=== PATIENT | female | born 1970 | race Caucasian/White ===

== ENCOUNTER → 2017-03-30 | Outpatient (REF) | payer OTHER ==
[2017-03-30 23:27] LABS: ALBUMIN 3.8 GM/DL (3.2-5.2); ALBUMIN/GLOBULIN RATIO 1.15 (1.00-1.93); ALKALINE PHOSPHATASE 49 U/L (45-117); ALT/SGPT 32 U/L (12-78); ANION GAP 5 MEQ/L (8-16); AST/SGOT 17 U/L (15-37); BILIRUBIN,TOTAL 0.3 MG/DL (0.2-1.0); BLOOD UREA NITROGEN 20 MG/DL (7-18); CALCIUM LEVEL 9.2 MG/DL (8.5-10.1); CARBON DIOXIDE LEVEL 31 MEQ/L (21-32); CHLORIDE LEVEL 105 MEQ/L (98-107); CREATININE FOR GFR 0.75 MG/DL (0.55-1.02); GLOMERULAR FILTRATION RATE > 60.0 (>58); GLUCOSE, FASTING 81 MG/DL (70-105); POTASSIUM SERUM 3.7 MEQ/L (3.5-5.1); SODIUM LEVEL 141 MEQ/L (136-145); TOTAL PROTEIN 7.1 GM/DL (6.4-8.2)
== END ==
LOC: M LABDRWAD 12:01
PROVIDERS: ATTEND Family Medicine
DX: R13.10 Dysphagia, unspecified (principal)

== ENCOUNTER → 2017-04-10 | Outpatient (CLI) | payer OTHER ==
[~2017-04-10] MED LIST: E-Z-GAS II EFFERVESCENT PACKET (SODIUM BICARB./CITRIC ACID/SIMETHICONE) As Ordered ONE; E-Z-HD 98% w/w 340GM SUSP BTL As Ordered ONE; E-Z-PAQUE 96% w/w SUSP 176GM BTL As Ordered ONE
--- NOTE | 2017-04-10 17:34 | REP ---
Upper GI air contrast The procedure was performed under the direct supervision of Dr. Moyer. The covering machine tender film shows no organomegaly or pathologic masses. The intestinal gas pattern is nonspecific. Liquid barium and gas producing crystals were given in the erect position as well as liquid barium in the prone oblique position in order to perform a double contrast upper GI examination. The oral and pharyngeal stages of deglutition are unremarkable. Esophageal transport is prompt and efficient and there is no esophagitis or stricture mucosal ring or hiatal hernia. Gastroesophageal reflux is not demonstrated on this examination. The stomach alvarez are normally outlined . The rugal folds are smooth and regular. There is no gastritis neoplasm or ulcer disease. The duodenal alvarez are normally outlined . The mucosal folds are smooth and regular. There is no duodenitis pancreatitis peptic ulcer disease or neoplasm. The visualized portion of the proximal small bowel appears normal in course and caliber. Impression: Essentially unremarkable double contrast upper GI examination. 2 minutes and 8 seconds of fluoro time was utilized for this procedure. Reviewed by ASHELY Peck 04/10/2017 05:12 PSigned by Geovany Moyer MD 04/10/2017 05:24 P
== END ==
LOC: M RAD 08:40
PROVIDERS: ATTEND Family Medicine
DX: R13.10 Dysphagia, unspecified (principal)

== ENCOUNTER 2017-08-28 07:16 | Outpatient (RCR) | payer OTHER | END 2017-08-29 | LOC: M ST 07:16 | DX: Z51.89 Encounter for other specified aftercare (principal); R49.0 Dysphonia ==

== ENCOUNTER 2017-09-03 09:06 | Outpatient (RCR) | payer OTHER | END 2017-09-29 | LOC: M ST 09:06 | DX: Z51.89 Encounter for other specified aftercare (principal); R49.0 Dysphonia ==

== ENCOUNTER 2017-10-09 15:07 | Outpatient (RCR) | payer OTHER | END 2017-10-29 | LOC: M ST 15:07 | DX: Z51.89 Encounter for other specified aftercare (principal); R49.0 Dysphonia ==

== ENCOUNTER 2017-11-07 15:21 | Outpatient (RCR) | payer OTHER | END 2017-11-29 | LOC: M ST 11-19 15:15 | DX: Z51.89 Encounter for other specified aftercare (principal); R49.0 Dysphonia ==

== ENCOUNTER 2017-12-12 15:26 | Outpatient (RCR) | payer OTHER | END 2017-12-29 | LOC: M ST 15:26 | DX: Z51.89 Encounter for other specified aftercare (principal); R49.0 Dysphonia ==

== ENCOUNTER → 2017-12-27 | Outpatient (REF) | payer OTHER | LOC: M LAB REF 18:06 | DX: Z12.4 Encounter for screening for malignant neoplasm of cervix (principal) ==

== ENCOUNTER → 2018-09-18 | Outpatient (REF) | payer OTHER | LOC: M LAB REF 12:41 | DX: N39.0 Urinary tract infection, site not specified (principal) ==

== ENCOUNTER → 2020-03-11 | Outpatient (REF) | payer OTHER | LOC: M LAB REF 13:07 | PROVIDERS: ATTEND Nurse Practitioner Family | DX: N39.0 Urinary tract infection, site not specified (principal) ==

== ENCOUNTER → 2020-03-29 | Outpatient (REF) | payer OTHER ==
[2020-03-29 17:11] LABS: BASO # 0.1 10^3/uL (0.0-0.2); BASO % 0.7 % (0.0-1.0); EOS # 0.1 10^3/uL (0.0-0.5); EOS % 1.6 % (0.0-3.0); HEMATOCRIT 36.1 % (36.0-47.0); HEMOGLOBIN 11.7 g/dl (12.0-15.5); LYMPH # 1.8 10^3/uL (1.5-5.0); LYMPH % 27.1 % (24.0-44.0); MEAN CORPUSCULAR HEMOGLOBIN 29.7 pg (27.0-33.0); MEAN CORPUSCULAR HGB CONC 32.4 g/dl (32.0-36.5); MEAN CORPUSCULAR VOLUME 91.6 fl (80.0-96.0); MONO # 0.7 10^3/uL (0.0-0.8); MONO % 10.6 % (0.0-5.0); NEUTROPHILS # 4.1 10^3/uL (1.5-8.5); NEUTROPHILS % 59.9 % (36.0-66.0); PLATELET COUNT, AUTOMATED 216 10^3/uL (150-450); RED BLOOD COUNT 3.94 10^6/uL (4.00-5.40); WHITE BLOOD COUNT 6.8 10^3/uL (4.0-10.0)
[2020-03-29 17:17] LABS: ALBUMIN 3.8 GM/DL (3.2-5.2); ALT/SGPT 25 U/L (12-78); BILIRUBIN,TOTAL 0.4 MG/DL (0.2-1.0); BLOOD UREA NITROGEN 16 MG/DL (7-18); CALCIUM LEVEL 8.8 MG/DL (8.5-10.1); CARBON DIOXIDE LEVEL 29 MEQ/L (21-32); CHLORIDE LEVEL 105 MEQ/L (98-107); CHOLESTEROL LEVEL 149 MG/DL (<200); CREATININE FOR GFR 0.67 MG/DL (0.55-1.30); FREE T4 0.97 NG/DL (0.76-1.46); GLOMERULAR FILTRATION RATE > 60.0 (>58); GLUCOSE, FASTING 81 MG/DL (70-100); HDL CHOLESTEROL 76 MG/DL (>40); LDL CHOLESTEROL 63 MG/DL (<100); NON-HDL-C 73 MG/DL; POTASSIUM SERUM 3.7 MEQ/L (3.5-5.1); SODIUM LEVEL 136 MEQ/L (136-145); TOTAL PROTEIN 7.5 GM/DL (6.4-8.2); TRIGLYCERIDES LEVEL 51 MG/DL (<150)
== END ==
LOC: M LABDRWAD 16:22
PROVIDERS: ATTEND Nurse Practitioner Family
DX: Z00.00 Encounter for general adult medical examination without abnormal findings (principal)

== ENCOUNTER → 2022-02-16 | Outpatient (CLI) | payer OTHER | LOC: M WHC 07:03 | PROVIDERS: ATTEND Family Medicine | DX: Z12.31 Encounter for screening mammogram for malignant neoplasm of breast (principal) ==

== ENCOUNTER → 2022-02-21 | Outpatient (REF) | payer OTHER | LOC: M LAB REF 17:19 | PROVIDERS: ATTEND Family Medicine | DX: Z12.4 Encounter for screening for malignant neoplasm of cervix (principal) | CPT/HCPCS: 87624; G0123 ==

== ENCOUNTER 2024-05-19 07:36 | Emergency (ER) | payer OTHER ==
[~2024-05-19] VITALS: Ht 167.6 cm; Wt 74.8 kg
[2024-05-19 08:13] LABS: BASO # 0.1 10^3/uL (0.0-0.2); BASO % 1.8 % (0.0-1.0); EOS # 0.2 10^3/uL (0.0-0.5); EOS % 5.2 % (0.0-3.0); HEMATOCRIT 38.5 % (36.0-47.0); LYMPH # 1.2 10^3/uL (1.5-5.0); LYMPH % 36.9 % (24.0-44.0); MEAN CORPUSCULAR HEMOGLOBIN 30.9 pg (27.0-33.0); MEAN CORPUSCULAR HGB CONC 33.8 g/dl (32.0-36.5); MEAN CORPUSCULAR VOLUME 91.4 fl (80.0-96.0); MONO # 0.4 10^3/uL (0.0-0.8); MONO % 11.9 % (2.0-8.0); NEUTROPHILS # 1.4 10^3/uL (1.5-8.5); NEUTROPHILS % 43.9 % (36.0-66.0); PLATELET COUNT, AUTOMATED 246 10^3/uL (150-450); RED BLOOD COUNT 4.21 10^6/uL (4.00-5.40); WHITE BLOOD COUNT 3.3 10^3/uL (4.0-10.0)
[2024-05-19 08:43] LABS: LIPASE 38 U/L (12-53)
[2024-05-19 08:45] LABS: ALBUMIN 3.9 G/DL (3.2-5.2); ALKALINE PHOSPHATASE 84 U/L (35-104); ALT/SGPT 23 U/L (7.0-40); AST/SGOT 21 U/L (<34); BILIRUBIN,DIRECT < 0.1 MG/DL (<0.4); BILIRUBIN,TOTAL 0.3 MG/DL (0.3-1.2); BLOOD UREA NITROGEN 16 MG/DL (9-23); CALCIUM LEVEL 9.4 MG/DL (8.5-10.1); CARBON DIOXIDE LEVEL 27 MMOL/L (20-31); CHLORIDE LEVEL 108 MMOL/L (98-107); CREATININE FOR GFR 0.66 MG/DL (0.55-1.30); GLOMERULAR FILTRATION RATE > 60.0 (>51); GLUCOSE, FASTING 92 MG/DL (60-100); POTASSIUM SERUM 4.2 MMOL/L (3.5-5.1); SODIUM LEVEL 144 MMOL/L (136-145); TOTAL PROTEIN 7.3 G/DL (5.7-8.2)
[2024-05-19 08:47] LABS: FREE T4 1.17 NG/DL (0.89-1.76); THYROID STIMULATING HORMONE 2.563 uIU/ML (0.55-4.78)
[2024-05-19 08:50] LABS: CPK CREATINE PHOSPHOKINASE 179 U/L (34-145); MB/CK RELATIVE INDEX 0.55 (< OR =4)
[2024-05-19 09:32] LABS: CK-MB VALUE MASS < 1.0 NG/ML (<3.6)
[2024-05-19 09:34] LABS: CPK CREATINE PHOSPHOKINASE 162 U/L (34-145); MB/CK RELATIVE INDEX 0.61 (< OR =4)
[2024-05-19 10:00] VITALS: BP 124/73; TEMP 97.8; O2SAT 98
== END 2024-05-19 10:04 | disposition home or self-care (01) ==
LOC: M ED 07:36
DX: R00.2 Palpitations (principal); I45.10 Unspecified right bundle-branch block

== ENCOUNTER → 2024-06-02 | Outpatient (CLI) | payer OTHER | LOC: M PLAIMG 13:26 | PROVIDERS: ATTEND Registered Nurse | DX: R07.89 Other chest pain (principal) ==

== ENCOUNTER → 2024-06-16 | Outpatient (CLI) | payer OTHER | LOC: M SOG 07:59 | PROVIDERS: ATTEND Physician Assistant | DX: M19.141 Post-traumatic osteoarthritis, right hand (principal) ==

== ENCOUNTER → 2024-07-03 | Outpatient (CLI) | payer OTHER | LOC: M WHC 15:58 | PROVIDERS: ATTEND Registered Nurse | DX: Z12.31 Encounter for screening mammogram for malignant neoplasm of breast (principal) ==

== ENCOUNTER → 2024-08-25 | Outpatient (REF) | payer OTHER ==
[2024-08-25 13:58] LABS: CHOLESTEROL RISK RATIO 2.09 (<5); HDL CHOLESTEROL 77.9 MG/DL (>40); LDL CHOLESTEROL 71.5 MG/DL (<100); NON-HDL-C 85.1 MG/DL
== END ==
LOC: M LABDRWAD 12:42
PROVIDERS: ATTEND Internal Medicine Cardiovascular Disease
DX: R00.2 Palpitations (principal); R07.89 Other chest pain

== ENCOUNTER 2025-05-11 23:27 | Observation (INO) | payer OTHER ==
[~2025-05-11] VITALS: Ht 167.6 cm; Wt 74.8 kg
[2025-05-12] MEDS: ADENOSINE 6 MG/2 ML INJECTION IV STA ×2 (00:08)
[2025-05-12] MEDS: NS (Normal Saline) 0.9% 1,000 ML IV ONE (00:15)
[2025-05-12] MEDS: METOPROLOL 5 MG/5 ML VIAL IV SCH (00:42)
[2025-05-12] MEDS ORDERED: dilTIAZem 25 MG/5 ML VIAL As Ordered ONE (01:23)
[2025-05-12] MEDS ORDERED: dilTIAZem 30 MG TAB As Ordered ONE (02:18)
[2025-05-12 02:58] LABS: CALCIUM LEVEL 9.3 MG/DL (8.5-10.1); CARBON DIOXIDE LEVEL 26 MMOL/L (20-31); CHLORIDE LEVEL 111 MMOL/L (98-107); CK-MB VALUE MASS 2.7 NG/ML (<3.6); CPK CREATINE PHOSPHOKINASE 193 U/L (34-145); CREATININE FOR GFR 0.67 MG/DL (0.55-1.30); GLOMERULAR FILTRATION RATE > 90.0 (>51); MB/CK RELATIVE INDEX 1.39 (< OR =4); POTASSIUM SERUM 4.1 MMOL/L (3.5-5.1); SODIUM LEVEL 148 MMOL/L (136-145)
[2025-05-12] MEDS ORDERED: MOM 30 ML SUSPENSION UDC PO PRN (03:10)
[2025-05-12] MEDS ORDERED: ACETAMINOPHEN 325 MG TAB PO PRN (03:10)
[2025-05-12 03:27] LABS: BASO # 0.1 10^3/uL (0.0-0.2); BASO % 1.0 % (0.0-1.0); EOS # 0.2 10^3/uL (0.0-0.5); EOS % 3.4 % (0.0-3.0); LYMPH # 2.0 10^3/uL (1.5-5.0); LYMPH % 31.9 % (24.0-44.0); MONO # 0.6 10^3/uL (0.0-0.8); MONO % 9.1 % (2.0-8.0); NEUTROPHILS # 3.3 10^3/uL (1.5-8.5); NEUTROPHILS % 53.8 % (36.0-66.0); PLATELET COUNT, AUTOMATED 287 10^3/uL (150-450)
[2025-05-12 03:56] LABS: CK-MB VALUE MASS 2.3 NG/ML (<3.6)
[2025-05-12 03:57] LABS: CPK CREATINE PHOSPHOKINASE 160.0 U/L (34-145); MB/CK RELATIVE INDEX 1.43 (< OR =4)
[2025-05-12] MEDS: dilTIAZem 180 MG **CD** CAPSULE PO ONE (04:15)
[2025-05-12] MEDS ORDERED: HOME MED LIST COMPLETE! XX SCH (07:40)
[2025-05-12] MEDS: APIXABAN 5 MG TAB PO SCH (09:26)
[2025-05-12] MEDS ORDERED: HOLTER MONITOR XX (12:05)
[2025-05-12] MEDS ORDERED: CARD180C4 PO (13:10)
[2025-05-12] MEDS ORDERED: ELIQ5TAB PO (13:10)
[2025-05-12 14:30] VITALS: BP 109/64; TEMP 96.7; O2SAT 98
[2025-05-12] MEDS ORDERED: dilTIAZem 30 MG TAB ONE (14:34)
[2025-05-12] MEDS ORDERED: dilTIAZem 25 MG/5 ML VIAL ONE (14:34)
[2025-05-12] MEDS ORDERED: dilTIAZem 180 MG **CD** CAPSULE PO SCH (15:00)
== END 2025-05-12 14:35 | disposition home or self-care (01) ==
LOC: M ED 23:27 → M ED INP 23:28
PROVIDERS: ADMIT Internal Medicine; ATTEND Internal Medicine
DX: I48.91 Unspecified atrial fibrillation (principal); R42 Dizziness and giddiness
CPT/HCPCS: 36415; 71045; 80048; 82550; 82553; 84484; 85025; 93005; 93306; 96374; 99285; J0616; J1163

== ENCOUNTER → 2025-05-12 | Outpatient (CLI) | payer OTHER ==
[~2025-05-12] MED LIST changes: +CARD180C4 PO; -E-Z-GAS II EFFERVESCENT PACKET (SODIUM BICARB./CITRIC ACID/SIMETHICONE) As Ordered ONE; -E-Z-HD 98% w/w 340GM SUSP BTL As Ordered ONE; -E-Z-PAQUE 96% w/w SUSP 176GM BTL As Ordered ONE; +ELIQ5TAB PO; +HOLTER MONITOR XX
== END ==
LOC: M EKG 14:52
PROVIDERS: ATTEND Internal Medicine
DX: R00.2 Palpitations (principal)